=== PATIENT | male | born 1945 | race Caucasian/White ===

== ENCOUNTER → 2024-08-02 | Outpatient (CLI) | payer MEDICARE, OTHER ==
--- NOTE | 2024-08-02 18:34 | RADIOLOGY REPORT ---
PROCEDURE: MR MRI C SPINE INDICATION: TORTICOLLIS EXAM DATE: 08/02/2024 02:42 PM COMPARISON: None TECHNIQUE: MRI cervical spine without intravenous contrast. FINDINGS: The cervical alignment is intact. Degenerative changes of the left C1-2 joint with Modic endplate césar nges. There are degenerative endplate changes including modic endplate changes with anterior and late ral osteophytes throughout the lumbar spine. The visualized posterior fossa and craniocervical juncti on are intact. The intrinsic cervical cord signal appears intact. There is no prevertebral soft tis clementine swelling. The visualized paraspinal soft tissues are otherwise unremarkable. The following axial levels are detailed below: C2-C3: Unremarkable. C3-C4: Moderate posterior disc osteophyte complex complicated by facet arthropathy associated with moderate to severe bilateral neural foraminal stenosis. Central canal measures 8 mm. C4-C5: Moderate posterior disc osteophyte complex complicated by facet arthropathy associated with mild to moderate bilateral neural foraminal stenosis. Central canal measures 9 mm. C5-C6: Unremarkable. C6-C7: Moderate posterior disc osteophyte complex complicated by facet arthropathy associated with moderate to severe bilateral neural foraminal stenosis. Central canal measures 9 mm. C7-T1: Mild posterior disc osteophyte complex complicated by facet arthropathy associated with mild to moderate bilateral neural foraminal stenosis. No significant central canal stenosis. IMPRESSION: 1. 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 Mild central canal stenos is C4-5 and C6-7. Neural foraminal stenosis as above. Degenerative changes of the left C1-2 articula tion. 2. Intact cervical cord signal. No evidence of cord compression. HS:Y
== END | disposition home or self-care (01) ==
LOC: MRI02 14:29
PROVIDERS: ATTEND Internal Medicine Cardiovascular Disease
DX: M48.02 Spinal stenosis, cervical region (principal); M43.6 Torticollis; M47.812 Spondylosis without myelopathy or radiculopathy, cervical region
CPT/HCPCS: 72141

== ENCOUNTER 2024-09-06 14:03 | Outpatient (CLI) | payer MEDICARE, OTHER ==
--- NOTE | 2024-09-06 16:40 | RADIOLOGY REPORT ---
EXAM: CT CT CERVICAL SPINE HISTORY: CERVICALGIA COMPARISON: MRI dated 08/02/2024 CTDIvol 20.2 mGy, DLP 514.8 mGy*cm. TECHNIQUE: Multiple axial CT images of the spine were obtained using bone algorithm. Axial and peña l reformatting was done. Bone and soft tissue windows were reviewed. FINDINGS: No evidence of definite acute fracture, spinal dislocation, or significant appearing acute subluxatio n is seen. Multilevel degenerative changes of the spine. Moderate canal and left foraminal stenosis at C3-C4. Moderate canal stenosis at C4-C5 and C6-C7. IMPRESSION: No definite CT evidence of acute fracture or dislocation of the bony cervical spine.
== END 2024-09-06 23:59 | disposition home or self-care (01) ==
LOC: RAD 14:03
PROVIDERS: ATTEND Orthopaedic Surgery
DX: M47.812 Spondylosis without myelopathy or radiculopathy, cervical region (principal); M54.2 Cervicalgia; R29.898 Other symptoms and signs involving the musculoskeletal system; M48.02 Spinal stenosis, cervical region
CPT/HCPCS: 72125